=== PATIENT | female | born 1945 | race Two or more races ===

== ENCOUNTER 2019-03-13 13:14 | Emergency (ER) | payer MEDICARE, OTHER ==
[~2019-03-13] VITALS: Ht 154.9 cm; Wt 56.7 kg
[~2019-03-13 13:14] MED LIST: ACTONEL30 MG PO; IBUPROFEN600 MG ORAL; NORCO 5-325 TA1 EACH PO
[2019-03-13] MEDS ORDERED: VITAMIN D1000 UNI1 ORAL (13:22)
[2019-03-13] MEDS ORDERED: OMEPRAZOLE20 M2 ORAL (13:22)
[2019-03-13 13:31] VITALS: BP 128/63
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
--- NOTE | 2019-03-13 14:07 | NUR ---
ED Nurse Note: pt went to xray with maria elena
--- NOTE | 2019-03-13 14:14 | Diagnostic Imaging Report ---
Indication: Trauma, pain Technique: 3 views of the right shoulder Comparison: none Findings: Calcifications of the greater tuberosity are consistent with calcific tendinosis. No acute fractures. No dislocations. The bones are somewhat osteoporotic. Impression: No acute bony trauma Evidence of right shoulder calcific tendinosis
--- NOTE | 2019-03-13 14:29 | NUR ---
ED Nurse Note: pt ent back from xray
--- NOTE | 2019-03-13 15:01 | Diagnostic Imaging Report ---
Indication: Pain, trauma Technique: 2 views of the right elbow Comparison: none Findings: Exam is limited, due to availability of only 2 views, inability of patient to straighten elbow. No definite acute fracture or dislocation. No definite joint effusion. The joint spaces are grossly preserved Impression: Limited exam, as described. No definite acute pathology
--- NOTE | 2019-03-13 15:05 | Diagnostic Imaging Report ---
Indication: Trauma, neck pain Technique: 3 views of the cervical spine Comparison: none Findings: There is slight straightening of the normal cervical lordosis. There is very slight anterior offset of C3 on C4. The bony alignment is otherwise normal. Vertebral body heights are preserved. The bones are osteoporotic. There is degenerative disc narrowing at C4-5 and C5-6, minimally at C6-7. No acute fractures. No dislocations. Impression: No acute bony trauma Degenerative changes, as described
--- NOTE | 2019-03-13 15:09 | Emergency Room Report ---
History of Present Illness General Chief Complaint: Upper Extremity Injury Source: Patient Present Illness HPI 73-year-old female with history of osteoporosis here complaining of pain and swelling in the right arm x1 day. Patient was walking yesterday and missed a step and fell on outstretched arm. Patient has been taking Advil with minimal relief. Rating her pain 10 out of 10 with radiation to right neck. Ecchymosis is noted in the right distal arm. Patient has full range of motion denies tingling and numbness. Denies all other associated symptoms such as chest pain , shortness of breath, palpitation, abdominal pain nausea vomiting. Denies any headache or dizziness prior to fall. Patient went to her primary care physician earlier today and was told to come to the emergency room for x-rays. Patient is already wearing arm sling Allergies: Coded Allergies: No Known Allergies (Unverified , 09/09/15) Patient History Past Medical History: see triage record Past Surgical History: unable to obtain Pertinent Family History: none Now: No Reviewed Nursing Documentation: PMH: Agreed; PSxH: Agreed Nursing Documentation-PMH Past Medical History: No Stated History Review of Systems All Other Systems: negative except mentioned in HPI Physical Exam Vital Signs Date Time Temp Pulse Resp B/P (MAP) Pulse Ox O2 Delivery O2 Flow Rate FiO2 03/13/19 13:18 98.6 100 18 128/63 (84) 98 Room Air Sp02 EP Interpretation: reviewed, normal General Appearance: normal inspection, well appearing, no apparent distress, alert, GCS 15 Head: normocephalic, atraumatic Eyes: bilateral eye normal inspection, bilateral eye PERRL ENT: normal ENT inspection, hearing grossly normal, normal pharynx Neck: normal inspection, full range of motion, supple, thyroid normal, no meningismus, no bony tend, no carotid bruits Respiratory: normal inspection, chest non-tender, no rhonchi, no retraction, no wheezing Cardiovascular #1: normal inspection, normal peripheral pulses, no edema, no murmur, normal capillary refill Cardiovascular #2: 2+ carotid (R), 2+ carotid (L), 2+ radial (R), 2+ radial (L) Gastrointestinal: normal inspection, non tender, soft Rectal: deferred Genitourinary: no CVA tenderness Musculoskeletal: back normal, other - Ecchymosis and swelling noted on the right distal shoulder Neurologic: normal inspection, alert, oriented x3, responsive, division operations specialist III-XII nml as tested Psychiatric: normal inspection, judgement/insight normal, memory normal Skin: palpation normal, other - Ecchymosis right distal shoulder Lymphatic: normal inspection, no adenopathy Medical Decision Making PA Attestation All my diagnosis and treatment plans were reviewed ad discussed with my supervising physician Dr. Julio Diagnostic Impression: Primary Impression: Shoulder contusion Additional Impression: Age related osteoporosis ER Course 73-year-old female with history of osteoporosis here complaining of pain and swelling in the right arm x1 day. Patient was walking yesterday and missed a step and fell on outstretched arm. Patient has been taking Advil with minimal relief. Rating her pain 10 out of 10 with radiation to right neck. Ecchymosis is noted in the right distal arm. Patient has full range of motion denies tingling and numbness. Denies all other associated symptoms such as chest pain , shortness of breath, palpitation, abdominal pain nausea vomiting. Denies any headache or dizziness prior to fall. Patient went to her primary care physician earlier today and was told to come to the emergency room for x-rays. Patient is already wearing arm sling Ddx considered but are not limited to : Shoulder sprain versus contusion versus fracture versus strain Vital signs: are WNL, pt. is afebrile H&PE are most consistent with: Shoulder contusion and age-related osteoporosis ORDERS: Shoulder, elbow, C-spine x-ray, Tylenol, Voltaren gel ED INTERVENTIONS: None DISCHARGE: At this time pt. is stable for d/c to home. Will provide printed patient care instructions, and any necessary prescriptions. Care plan and follow up instructions have been discussed with the patient prior to discharge. I advised patient to keep the arm sling on until seen by shredding specialist due to her osteoporosis patient is high risk for fracture alternate between icing and heating. Take medication as directed patient reports that ibuprofen family bothers her stomach or sensory gastritis. Therefore patient was given Voltaren gel as well as 1000 mg Tylenol Other X-Ray Diagnostic Results Other X-Ray Diagnostic Results #1: X-Ray ordered: Right shoulder # of Views/Limited Vs Complete: 3 View Indication: Pain EP Interpretation: Yes PA Xray: by supervising MD, and agrees with findings. Interpretation: no soft tissue swelling, no fractures Impression: No acute disease Electronically Signed by: Kanika Price PA-C Other X-Ray Diagnostic Results #2: X-Ray ordered: Elbow # of Views/Limited Vs Complete: 3 View Indication: Pain EP Interpretation: Yes NEHA Xray: Interpretation reviewed, by supervising MD, and agrees with findings. Interpretation: no dislocation, no soft tissue swelling, no fractures Impression: No acute disease Electronically Signed by: Kanika Price PA-C Other X-Ray Diagnostic Results #3: X-Ray ordered: C-spine # of Views/Limited Vs Complete: 3 View Indication: Pain EP Interpretation: Yes NEHA Xray: Interpretation reviewed, by supervising MD, and agrees with findings. Interpretation: no dislocation, no soft tissue swelling, no fractures Impression: No acute disease Electronically Signed by: Kanika Price PA-C Last Vital Signs Date Time Temp Pulse Resp B/P (MAP) Pulse Ox O2 Delivery O2 Flow Rate FiO2 03/13/19 13:31 98.6 100 18 128/63 98 Room Air Disposition: HOME, SELF-CARE Condition: Stable Scripts Acetaminophen* (ACETAMINOPHEN EXTRA STRENGTH*) 500 Mg Tablet 1000 MG ORAL Q6H, #30 TAB 0 Refills Prov: Kanika Gomez 03/13/19 Diclofenac Sodium (VOLTAREN) 100 Gm Gel..gram. 2 GM TP TID, #100 GM Prov: Kanika Gomez 03/13/19 Referrals: NON PHYSICIAN (PCP) Patient Instructions: Contusion, [id number], Shoulder Pain, [id number] Additional Instructions: Follow-up with your primary care provider and orthopedic due to your osteoporosis is better to keep the arm sling on to prevent fracture as you have very brittle bones even though at this time there is negative radiology report for fracture. Take medication as directed alternate between icing and heating the affected area avoid strenuous physical activity with affected side Kanika Gomez Mar 13, 2019 15:09
[2019-03-13] MEDS ORDERED: VOLTAREN100 G1 TP (15:11)
[2019-03-13] MEDS ORDERED: ACETAMINOPHEN500 M3 ORAL (15:19)
[2019-03-13 15:25] VITALS: BP 120/63
--- NOTE | 2019-03-13 15:25 | NUR ---
ER DISCHARGE NOTE: Patient is cleared to be discharged per ERMD, pt is aox4, on room air, with stable vital signs. pt was given dc and prescription instructions, pt was able to verbalize understanding, pt id band removed. pt is able to ambulate with steady gait. pt took all belongings.
== END 2019-03-13 15:25 | disposition home or self-care (01) ==
LOC: EMR 14:03
DX: S40.011A Contusion of right shoulder, initial encounter (principal); M81.0 Age-related osteoporosis without current pathological fracture; W19.XXXA Unspecified fall, initial encounter; Y92.9 Unspecified place or not applicable
CPT/HCPCS: 72040; 99284

== ENCOUNTER 2019-09-10 18:26 | Emergency (ER) | payer MEDICARE, OTHER ==
[~2019-09-10] VITALS: Ht 152.4 cm; Wt 61.2 kg
[~2019-09-10 18:26] MED LIST changes: +ACETAMINOPHEN500 M3 ORAL; +OMEPRAZOLE20 M2 ORAL; +VITAMIN D1000 UNI1 ORAL; +VOLTAREN100 G1 TP
[2019-09-10 18:30] VITALS: BP 146/81
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
--- NOTE | 2019-09-10 18:40 | NUR ---
ED Nurse Note: LAFD on bedside.
--- NOTE | 2019-09-10 19:08 | NUR ---
HAND-OFF: Report given to JANE Valente.
--- NOTE | 2019-09-10 19:12 | NUR ---
HAND-OFF: Report given to JANE Valente.
--- NOTE | 2019-09-10 19:15 | NUR ---
ED Nurse Note: Report received from JANE Meeks.
--- NOTE | 2019-09-10 19:30 | NUR ---
ED Nurse Note: IV line established, blood drawn by RN and sent to lab. IV fluids infusing as ordered.
[2019-09-10] MEDS ORDERED: LORazepam 0.5mg tab ORAL ONE (19:45)
[2019-09-10 19:53] LABS: BASOPHILS % (AUTO) 0.8 % (0.0-2.0); EOSINOPHILS % (AUTO) 0.3 % (0.0-3.0); HEMOGLOBIN 12.1 G/DL (12.0-16.0); LYMPHOCYTES % (AUTO) 12.4 % (20.0-45.0); MEAN CORPUSCULAR VOLUME 87 FL (80-99); MONOCYTES % (AUTO) 6.9 % (1.0-10.0); NEUTROPHILS % (AUTO) 79.7 % (45.0-75.0); PLATELET COUNT 249 K/UL (150-450); RED BLOOD COUNT 4.15 M/UL (4.20-5.40); RED CELL DISTRIBUTION WIDTH 10.6 % (11.6-14.8); WHITE BLOOD COUNT 8.5 K/UL (4.8-10.8)
[2019-09-10 20:15] LABS: APPEARANCE,URINE SLIGHTLY CLOUDY; BILIRUBIN, URINE NEGATIVE (NEGATIVE); COLOR,URINE PALE YELLOW; GLUCOSE, URINE (UA) NEGATIVE (NEGATIVE); KETONES,URINE 2+ (NEGATIVE); LEUKOCYTE ESTERASE ,URINE 2+ (NEGATIVE); NITRITE,URINE NEGATIVE (NEGATIVE); PH,URINE 6.5 (4.5-8.0); PROTEIN,URINE 1+ (NEGATIVE); UROBILINOGEN,URINE NORMAL MG/DL (0.0-1.0)
[2019-09-10 20:19] LABS: ANION GAP 12 mmol/L (5-15); BLOOD UREA NITROGEN 14 mg/dL (7-18); CALCIUM 9.4 MG/DL (8.5-10.1); CARBON DIOXIDE 26 MMOL/L (21-32); CHLORIDE 104 MMOL/L (98-107); CREATININE 0.7 MG/DL (0.55-1.30); POTASSIUM 3.7 MMOL/L (3.5-5.1); SODIUM 142 MMOL/L (136-145)
[2019-09-10 20:23] LABS: ALANINE AMINOTRANSFERASE 25 U/L (12-78); ALBUMIN 4.2 G/DL (3.4-5.0); ALKALINE PHOSPHATASE 55 U/L (46-116); ASPARTATE AMINO TRANSFERASE 24 U/L (15-37); BILIRUBIN,TOTAL 0.3 MG/DL (0.2-1.0)
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
[2019-09-10] MEDS ORDERED: IBUPROFEN600 MG ORAL (20:52)
[2019-09-10] MEDS ORDERED: NITROFURANTOIN100 M2 ORAL (20:52)
[2019-09-10] MEDS ORDERED: LIDODERM700 M1 TOPIC (20:52)
[2019-09-10 21:00] VITALS: BP 140/70
--- NOTE | 2019-09-10 21:00 | NUR ---
ER DISCHARGE NOTE: Patient is cleared to be discharged per ERMD, pt is aox4, on room air, with stable vital signs. pt was given dc and prescription instructions, pt was able to verbalize understanding, pt id band and iv site removed without complications. pt is able to ambulate with steady gait. pt took all belongings.
--- NOTE | 2019-09-11 10:40 | Diagnostic Imaging Report ---
Indication: Chest pain Technique: One view of the chest Comparison: none Findings: Lungs and pleural spaces are clear. Heart size is normal. Impression: No acute process
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
== END 2019-09-10 21:00 | disposition home or self-care (01) ==
LOC: EDBD 18:26 → EMR 20:16
DX: F41.9 Anxiety disorder, unspecified (principal); N39.0 Urinary tract infection, site not specified; S30.0XXA Contusion of lower back and pelvis, initial encounter; Y04.2XXA Assault by strike against or bumped into by another person, initial encounter; Y92.9 Unspecified place or not applicable; R00.0 Tachycardia, unspecified
CPT/HCPCS: 36415; 71045; 72220; 80053; 80307; 81003; 84484; 85025; 87086; 93005; 96360; 99284; J7030